=== PATIENT | male | born 1965 | race Caucasian/White ===

== ENCOUNTER 2016-07-20 22:24 | Emergency (ER) | payer OTHER ==
[~2016-07-20] VITALS: Ht 172.7 cm; Wt 113.0 kg
[2016-07-20 22:57] LABS: HEMATOCRIT 44.4 % (38.0-50.0); MCH 28.3 PG (29.0-34.0); MCHC 34.2 G/DL (30.0-36.0); MCV 82.7 FL (86-99); MEAN PLAT.VOLUME 9.5 uM^3 (9.0-12.4); PLATELET COUNT 271 K/uL (156-360); RBC DIS.WIDTH-CV 12.6 % (11.8-14.6); RBC DIS.WIDTH-SD 37.9 % (39-53); RED BLOOD COUNT 5.37 M/uL (4.00-5.50); WHITE BLOOD COUNT 11.1 K/uL (4.1-10.2)
[2016-07-20 23:05] LABS: CHLORIDE 101 mEq/L (99-109); POTASSIUM 4.1 mEq/L (3.7-5.4); SODIUM 136 mEq/L (136-147)
[2016-07-20 23:07] LABS: GLUCOSE 302 mg/dL (70-99)
[2016-07-20 23:09] LABS: ANION GAP 12 MEQ/L (2-14); TOTAL BILIRUBIN 0.6 mg/dL (0.0-1.0)
[2016-07-20 23:11] LABS: ALKALINE PHOSPHATASE 47 IU/L (3-129); GFR ESTIMATE (CALCULATED) > 59 mL/min/
[2016-07-20 23:12] LABS: UREA NITROGEN (BUN) 27 mg/dL (9-23)
[2016-07-21] MEDS ORDERED: CIPROFLOXACIN500 M1 PO (01:08)
[2016-07-21] MEDS ORDERED: FLAGYL500 MG PO (01:08)
[2016-07-21 01:28] VITALS: BP 153/92
== END 2016-07-21 01:29 | disposition home or self-care (01) ==
LOC: EME 22:24
DX: K52.9 Noninfective gastroenteritis and colitis, unspecified (principal)
CPT/HCPCS: 74177; 80053; 85027; 86850; 86900; 86901; 99281; 99285